=== PATIENT | male | born 1995 | race African-American/Black ===

== ENCOUNTER 2018-07-22 14:50 | Emergency (ER) | payer SELFPAY ==
[~2018-07-22] VITALS: Ht 170.1 cm; Wt 75.7 kg
[~2018-07-22 14:50] MED LIST: NKHM; NORCO 325 MG-51 TAB PO; PEN-VK500 MG PO
[2018-07-22] MEDS ORDERED: GENVOYA TABLET1 EACH PO (14:57)
[2018-07-22] MEDS ORDERED: AMOXICILLIN500 M3 PO (16:07)
== END 2018-07-22 16:08 | disposition home or self-care (01) ==
LOC: ED
DX: H66.92 Otitis media, unspecified, left ear (principal); J03.80 Acute tonsillitis due to other specified organisms; B96.89 Other specified bacterial agents as the cause of diseases classified elsewhere; Z79.899 Other long term (current) drug therapy

== ENCOUNTER → 2018-10-06 | Outpatient (CLI) | payer SELFPAY ==
[~2018-10-06] MED LIST changes: +AMOXICILLIN500 M3 PO; +GENVOYA TABLET1 EACH PO
[2018-10-06 15:29] LABS: BASO % 0.2 % (0.0-1.0); EOS # 0.1 10*3/uL (0.0-0.4); HEMATOCRIT 43.1 % (42.0-52.0); HEMOGLOBIN 14.1 g/dl (14.0-18.0); LYMPH # 2.2 10*3/uL (1.3-4.4); LYMPH % 38.1 % (27.0-41.0); MEAN CELL VOLUME 78.4 fl (80.0-94.0); MEAN CORPUSCULAR HGB 25.6 pg (27.0-31.0); MEAN CORPUSCULAR HGB CONC 32.7 g/dl (33.0-37.0); MEAN PLATELET VOLUME 9.5 fl (9.6-12.3); MONO % 16.2 % (3.0-9.0); NEUT # 2.6 10*3/uL (2.3-7.9); NEUT % 44.3 % (47.0-73.0); PLATELET COUNT AUTOMATED 208 10*3/uL (130-400); RED CELL DISTRI WIDTH 13.2 % (0-14.5); WHITE BLOOD COUNT 5.9 10*3/uL (4.8-10.8)
[2018-10-06 15:50] LABS: ALBUMIN 3.8 gm/dl (3.1-4.5); ALKALINE PHOSPHATASE 55 U/L (45-117); BUN 13 mg/dl (7-24); CHLORIDE 105 mmol/L (98-107); CREATININE 1.14 mg/dL (0.70-1.30); POTASSIUM 4.2 mmol/L (3.5-5.1); SGOT/AST 22 IU/L (3-35); SGPT/ALT 35 U/L (12-78); SODIUM 139 mmol/L (136-145)
[2018-10-06 16:29] LABS: VITAMIN D, 25-HYDROXY 10.2 ng/mL (30-100)
[2018-10-07 08:11] LABS: HEMATOCRIT 40.5 % (37.5-51.0); HEMOGLOBIN 13.7 g/dL (13.0-17.7); RBC 5.36 x10E6/uL (4.14-5.80); WBC 5.6 x10E3/uL (3.4-10.8)
[2018-10-07 13:05] LABS: ABSOLUTE CD 4 HELPER 271 /uL (359-1519); CD 4 POS LYMPH, % 12.3 % (30.8-58.5)
[2018-10-08 20:08] LABS: HIV-1 RNA BY PCR 25000 (.); LOG10 HIV-1 RNA 4.398 (.)
[2018-10-21 07:38] LABS: HIV GENOSURE PDF SEE REFERENCE REPORT
== END | disposition home or self-care (01) ==
LOC: RESCLI 13:44
PROVIDERS: Internal Medicine Nephrology
DX: B20 Human immunodeficiency virus [HIV] disease (principal); J06.9 Acute upper respiratory infection, unspecified; F12.10 Cannabis abuse, uncomplicated; Z76.89 Persons encountering health services in other specified circumstances; Z88.8 Allergy status to other drugs, medicaments and biological substances

== ENCOUNTER → 2019-03-12 | Outpatient (CLI) | payer SELFPAY ==
[2019-03-12 14:15] LABS: BILIRUBIN NEGATIVE (NEGATIVE); BLOOD NEGATIVE (NEGATIVE); CLARITY CLEAR (CLEAR); COLOR YELLOW (YELLOW); GLUCOSE NEGATIVE (NEGATIVE); KETONE NEGATIVE (NEGATIVE); LEUKO ESTERASE NEGATIVE (NEGATIVE); NITRITE NEGATIVE (NEGATIVE); SPECIFIC GRAVITY 1.015 (1.005-1.030); UROBILINOGEN 0.2 E.U./dl (0.2-1.0)
[2019-03-12 14:28] LABS: BACTERIA 1+; MUCOUS 2+; WBC 0-2 wbc/hpf (0-5)
== END | disposition home or self-care (01) ==
LOC: RESCLI 13:08
PROVIDERS: Internal Medicine
DX: B20 Human immunodeficiency virus [HIV] disease (principal); R10.30 Lower abdominal pain, unspecified; M79.644 Pain in right finger(s); Z88.8 Allergy status to other drugs, medicaments and biological substances; Z79.899 Other long term (current) drug therapy

== ENCOUNTER 2022-12-03 19:24 | Emergency (ER) | payer MEDICAID ==
[~2022-12-03] VITALS: Ht 172.7 cm; Wt 88.5 kg
[2022-12-03] MEDS ORDERED: AMOXICILLIN500 M2 PO (20:17)
[2022-12-03] MEDS ORDERED: BENZONATATE100 M1 PO (20:17)
== END 2022-12-03 20:39 | disposition home or self-care (01) ==
LOC: ED 19:24
DX: J02.9 Acute pharyngitis, unspecified (principal); Z21 Asymptomatic human immunodeficiency virus [HIV] infection status

== ENCOUNTER 2022-12-29 10:55 | Emergency (ER) | payer OTHER ==
[~2022-12-29] VITALS: Ht 170.2 cm; Wt 81.6 kg
[~2022-12-29 10:55] MED LIST changes: +AMOXICILLIN500 M2 PO; +BENZONATATE100 M1 PO
[2022-12-29] MEDS ORDERED: AMOX-CLAV 875-1 EACH PO (11:40)
[2022-12-30] MEDS ORDERED: OMNICEF300 MG PO (18:11)
[2022-12-30] MEDS ORDERED: MEDROL DOSEPAK4 MG PO (18:11)
== END 2022-12-29 11:46 | disposition home or self-care (01) ==
LOC: ED 10:55
DX: J03.90 Acute tonsillitis, unspecified (principal)

== ENCOUNTER 2022-12-30 15:35 | Emergency (ER) | payer OTHER ==
[~2022-12-30] VITALS: Ht 170.1 cm; Wt 86.6 kg
[~2022-12-30 15:35] MED LIST changes: +AMOX-CLAV 875-1 EACH PO
[2022-12-30 16:34] LABS: BASO % 0.2 % (0.0-1.0); EOS % 0.3 % (1.0-4.0); HEMATOCRIT 41.1 % (42.0-52.0); LYMPH # 2.4 10*3/uL (1.3-4.4); LYMPH % 36.4 % (27.0-41.0); MEAN CELL VOLUME 77.4 fl (80.0-94.0); MEAN CORPUSCULAR HGB 24.9 pg (27.0-31.0); MEAN CORPUSCULAR HGB CONC 32.1 g/dl (33.0-37.0); MEAN PLATELET VOLUME 9.7 fl (9.6-12.3); MONO # 0.9 10*3/uL (0.1-1.0); MONO % 13.7 % (3.0-9.0); NEUT # 3.3 10*3/uL (2.3-7.9); NEUT % 49.1 % (47.0-73.0); PLATELET COUNT AUTOMATED 232 10*3/uL (130-400); RED BLOOD COUNT 5.31 10*6/uL (4.50-5.90); RED CELL DISTRI WIDTH 13.9 % (0-14.5); WHITE BLOOD COUNT 6.6 10*3/uL (4.8-10.8)
[2022-12-30 16:49] LABS: ALKALINE PHOSPHATASE 57 U/L (46-116); BUN 8 mg/dl (9-23); CHLORIDE 103 mmol/L (98-107); SGPT/ALT 17 U/L (10-49); TOTAL PROTEIN 8.7 gm/dL (6.0-8.0)
[2022-12-30] MEDS ORDERED: MEDROL DOSEPAK4 MG PO (18:11)
[2022-12-30] MEDS ORDERED: OMNICEF300 MG PO (18:11)
== END 2022-12-30 18:51 | disposition home or self-care (01) ==
LOC: ED 15:35
PROVIDERS: Nurse Practitioner Family
DX: B27.90 Infectious mononucleosis, unspecified without complication (principal); J03.90 Acute tonsillitis, unspecified; H92.03 Otalgia, bilateral; R19.7 Diarrhea, unspecified; Z88.8 Allergy status to other drugs, medicaments and biological substances